=== PATIENT | female | born 1945 | race Caucasian/White ===

== ENCOUNTER 2016-10-30 08:33 | Day surgery (SDC) | payer MEDICARE, OTHER ==
--- NOTE | 2016-11-01 12:53 | Physician Courtesy Letter ---
October 30, 2016 Fransisca Crump DO [facility] [address], [address] [place], [place] [address] Dear Fransisca: I had an opportunity of seeing your patient in the Endoscopy Clinic at [facility] today. She was scheduled for surveillance colonoscopy for history of colon polyps and a family history of colon cancer. Unfortunately, she had a blood sugar of 403 when checked at this time. I explained to her that she needed to be treated and suggested she go to the Emergency Department to treat her hyperglycemia and evaluate for possible other pathology contributing to this elevated blood sugar level. She reports that she has not taken her insulin in 2 days, and at times she forgets to take it. She also apparently takes metformin, but at times might forget that as well. She refused to be treated, and wanted to go home. She was offered the option of having a lower GI x-ray today, but declined this as well. She states she will go home and take her insulin and follow up with you as scheduled. I would be happy to complete her colonoscopy when clinically more stable. Thank you for allowing me to participate in her care. IRVING
== END 2016-10-30 14:42 | disposition home or self-care (01) ==
LOC: HOP 08:33
PROVIDERS: ATTEND Internal Medicine Gastroenterology
DX: Z86.010 Personal history of colon polyps (principal); Z53.9 Procedure and treatment not carried out, unspecified reason

== ENCOUNTER 2018-07-17 04:31 | Emergency (ER) | payer MEDICARE, OTHER ==
[2018-07-17] MEDS ORDERED: HUMULIN R 100 UNIT/ML VIAL SC ONE (04:32)
[2018-07-17] MEDS ORDERED: 0.9 % SODIUM CHLORIDE 1000ML 1,000 ML IV SCH (04:45)
--- NOTE | 2018-07-17 04:51 | Emergency Department Record ---
History of Present Illness - General Chief complaint: Cold Exposure Stated complaint: COLD EXPOSURE Time Seen by Provider: 07/17/18 04:45 Source: Patient Mode of Arrival: EMS Limitations: No limitations - History of Present Illness Initial comments: 73 yo female presents to ED after being found by laying outdoors this morning by a passing salt truck. Patient reports that she slipped and fell, but was unable to lift her self up. Patient denies injury on examination, and denies focal weakness on examination. Patient denies the use of anticoagulation medications. Patient was exposed to the cold for approximately 2 hours. MD Complaint: Other Onset/Timin -: Hour(s) History of Same: No Consistency: Constant Improves with: Nothing Worsens with: Nothing Associated Symptoms: Denies other symptoms - Related Data Home Medications Medication Instructions Recorded Confirmed Last Taken Insulin Aspart [Novolog Flexpen] 1 unit SQ TID 07/17/18 07/17/18 07/16/18 Insulin Detemir [Levemir Flextouch] 65 unit SQ DAILY 07/17/18 07/17/18 07/16/18 Solifenacin Succinate [Vesicare] 10 mg PO DAILY 07/17/18 07/17/18 Unknown Allergies Allergy/AdvReac Type Severity Reaction Status Date / Time No Known Drug Allergies Allergy Verified 08/18/16 09:31 Travel Screening - Travel/Exposure Within Last 30 Days Have you traveled within the last 30 days?: No - Travel Symptoms Symptom Screening: None Review of Systems Constitutional: Denies: Chills, Fever, Malaise, Night sweats Eyes: Denies: Eye discharge, Eye pain ENT: Denies: Congestion, Ear pain, Epistaxis Respiratory: Denies: Cough, Dyspnea Cardiovascular: Denies: Arrhythmia, Chest pain, Dyspnea on exertion Endocrine: Denies: Fatigue, Heat or cold intolerance Gastrointestinal: Denies: Abdominal pain, Nausea, Vomiting Genitourinary: Denies: Incontinence, Retention Musculoskeletal: Denies: Arthralgia, Back pain Skin: Denies: Bruising, Change in color Neurological: Denies: Abnormal gait, Confusion, Headache, Seizure Psychiatric: Denies: Anxiety Hematological/Lymphatic: Denies: Anemia, Blood Clots Past Medical History - SOCIAL HISTORY Smoking Status: Current every day smoker Alcohol Use: None Drug Use: None - RESPIRATORY Hx Respiratory Disorders: No - CARDIOVASCULAR Hx Cardio Disorders: Yes Hx Hypertension: Yes Comment:: high cholesterol - NEURO Hx Neuro Disorders: No - GI Hx GI Disorders: Yes Hx of Polyps: Yes - Hx Genitourinary Disorders: Yes Hx Bladder Problem: Yes - ENDOCRINE Hx Endocrine Disorders: Yes Hx Diabetes: Yes Hx Thyroid Disease: Yes (hypothyroid) - MUSCULOSKELETAL Hx Musculoskeletal Disorders: Yes Hx Arthritis: Yes - PSYCH Hx Psych Problems: No - HEMATOLOGY/ONCOLOGY Hx Hematology/Oncology Disorders: No Family Medical History Any Significant Family History?: Yes Hx Cancer: Father Hx Diabetes: Brother/Sister Hx Heart Disease: Grandparents Hx HTN: Grandparents Physical Exam - General General Appearance: Alert, Oriented x3, Cooperative, Mild distress Limitations: No limitations - Head Head exam: Atraumatic, Normocephalic, Normal inspection Head exam detail: negative: Abrasion, Contusion, Qureshi's sign, General tenderness, Hematoma, Laceration - Eye Eye exam: Normal appearance. negative: Conjunctival injection, Periorbital swelling, Periorbital tenderness, Scleral icterus - ENT Ear exam: negative: Auricular hematoma, Auricular trauma Nasal Exam: negative: Active bleeding, Discharge, Dried blood, Foreign body Mouth exam: negative: Drooling, Laceration, Muffled voice, Tongue elevation - Neck Neck exam: Normal inspection. negative: Meningismus, Tenderness - Respiratory Respiratory exam: Normal lung sounds bilaterally. negative: Rales, Respiratory distress, Rhonchi, Stridor - Cardiovascular Cardiovascular Exam: Normal rhythm, Normal heart sounds, Tachycardia - GI/Abdominal GI/Abdominal exam: Soft. negative: Rebound, Rigid, Tenderness - Rectal Rectal exam: Deferred - exam: Deferred - Extremities Extremities exam: Normal inspection. negative: Calf tenderness, Pedal edema, Tenderness - Back Back exam: Denies: CVA tenderness (R), CVA tenderness (L) - Neurological Neurological exam: Alert, Normal gait, Oriented X3 - Psychiatric Psychiatric exam: Normal affect, Normal mood - Skin Skin exam: Normal color. negative: Abrasion Type of lesion: negative: abrasion Course Vital Signs 07/17/18 04:33 Temperature 95.6 F L Pulse Rate 122 H Respiratory 20 Rate Blood Pressure 174/83 Pulse Ox 97 - Reevaluation(s) Reevaluation #1: 07/17/18 05:16 Laboratory studies were reviewed: LA 5.2 CO2 15 AG 33 Venous pH 7.15 Hgb 17.9 Glucose 450 Acetone positive 1:16 Laboratory studies are otherwise grossly unremarkable for an acute process. Patient is currently in CT for imaging studies. 07/17/18 05:28 Reevaluation #2: 07/17/18 05:34 Patient is back from CT imaging Warmed IVFs are infusing Pulse improved to 110 Patient was updated on all results thus far Will plan on repeat labs to determine lactic acidosis vs. DKA and monitor closely. Reevaluation #3: 07/17/18 06:05 CT Brain: Mild diffuse volume loss, likely small vessel ischemic change. No acute process. 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 Repeat temperature 97.9 at this time. Reevaluation #4: 07/17/18 06:11 EKG: Sinus tachycardia 106 Normal axis, normal intervals Diffuse artifact present, no acute ST-T wave changes are present. Reevaluation #5: 07/17/18 07:29 Repeat labs were reviewed: Lactic acid improved 1.5 AG improved to 29 Glucose improved to 390 CO2 Decreased to 11 Case was discussed with Dr. St (Inpatient admitting provider), feels the patient will require higher level of care due to the complexity of her electrolyte abnormalities. [facility] 1-call contacted for transfer. Case was discussed with Dr. Wilkes, will accept transfer at this time. Medical Decision Making - Lab Data Result diagrams: 07/17/18 04:21 07/17/18 06:47 Critical Care Time Critical Care Time: Yes Total Critical Care Time: 90 Critical Care Time: Diagnosis and treatment for hypothermia, exclusion of traumatic injury, treatment and reassessment for lactic acidosis and hyperglycemia (possible DKA) , multiple reassessments, EKG interpretation, laboratory interpretation, and initiation of transfer. Disposition Disposition: Transfer Clinical Impression: Hyperglycemia, Lactic acidosis Hypothermia Qualifiers: Encounter type: initial encounter Qualified Code(s): T68.XXXA - Hypothermia, initial encounter Disposition: Still a Patient at [facility] Transfer To: [facility] Reason For Transfer: DESIR admission, DKA vs. Lactic acidosis Accepting Physician: Chung Time Discussed w/Accepting Physician: 07:32 Condition: (2) Stable Forms: Patient Portal Access Time of Disposition: 07:32 Quality - Quality Measures Quality Measures: N/A - Blood Pressure Screening Does Patient Have Any of the Following: No Blood Pressure Classification: Pre-Hypertensive BP Reading Systolic Measurement: 174 Diastolic Measurement: 83 Screening for High Blood Pressure: < Pre-Hypertensive BP, F/U Documented > [ [id number]] Pre-Hypertensive Follow-up Interventions: Referral to alternative/primary care provider.
[2018-07-17 04:55] LABS: BASO % 0.6 % (0-6); EOS % 1.2 % (0-6); GRAN % 66.2 % (47-80); HEMOGLOBIN 17.9 gm/dl (11.6-16.0); LYMPH % 24.4 % (16-45); MEAN CELL VOLUME 88.6 fl (81-97); MEAN CORPUSCULAR HGB CONC 34.4 g/dl (32-36); MONO % 7.6 % (0-9); PLATELET COUNT 285 K/uL (130-400); RED BLOOD COUNT 5.87 M/uL (3.80-5.40); RED CELL DISTRIBUTION WIDTH 14.3 % (11.5-14.5); WHITE BLOOD COUNT W/O DIFF 10.4 K/uL (4.2-12.2)
[2018-07-17 04:56] LABS: MEAN CORPUSCULAR HEMOGLOBIN 30.4 pg (27-33)
[2018-07-17 05:03] LABS: BLOOD UREA NITROGEN 19 mg/dL (8-23); CREATININE 0.9 mg/dL (0.5-0.9); EST GLOMERULAR FILTRATION RATE > 60 mL/min
[2018-07-17 05:04] LABS: TOTAL PROTEIN 8.1 g/dL (6.6-8.7)
[2018-07-17 05:09] LABS: ALB/GLOB RATIO 1.3 (1.1-1.8); ALBUMIN 4.5 g/dL (4.0-5.0); ALKALINE PHOSPHATASE 105 U/L (45-87); ALT/SGPT 10 U/L (<33); AST/SGOT 11 U/L (10.0-35.0)
[2018-07-17 05:18] LABS: GLUCOSE,RANDOM 459 mg/dL (74-109)
[2018-07-17] MEDS ORDERED: 0.9 % SODIUM CHLORIDE 1000ML 1,000 ML IV ONE (05:45)
[2018-07-17 07:16] LABS: BLOOD UREA NITROGEN 18 mg/dL (8-23); CREATININE 0.7 mg/dL (0.5-0.9); EST GLOMERULAR FILTRATION RATE > 60 mL/min; GLUCOSE,RANDOM 390 mg/dL (74-109)
[2018-07-17 07:17] LABS: LACTIC ACID 1.5 mmol/L (0.5-2.2)
[2018-07-17] MEDS ORDERED: HUMULIN R 100 UNIT/ML VIAL IV ONE (10:27)
--- NOTE | 2018-07-18 12:33 | CT SCAN REPORT ---
EXAM: CT OF THE BRAIN WITHOUT CONTRAST HISTORY: FALL. TECHNIQUE: Sequential axial images were obtained from the foramen magnum to the vertex without contrast administration. FINDINGS: The brain volume is normal. There is periventricular small vessel ischemia. No large territorial infarct, hemorrhage, mass effect, or midline shift. No extraaxial fluid collection. The orbits, paranasal sinuses, and mastoid air cells are normal. IMPRESSION: PERIVENTRICULAR SMALL VESSEL ISCHEMIA. NO ACUTE INTRACRANIAL ABNORMALITY. JOB NUMBER: [id number] [facility]
--- NOTE | 2018-07-18 12:41 | CT SCAN REPORT ---
EXAM: CT OF THE CERVICAL SPINE WITHOUT CONTRAST HISTORY: INJURY. TECHNIQUE: Sequential axial images were obtained through the cervical spine without intravenous contrast administration. Sagittal and coronal reformatted images were performed. FINDINGS: No evidence of fracture, subluxation or perched facet. Multilevel degenerative change. Findings most pronounced at C4-C5 through C6-C7 levels. IMPRESSION: NO EVIDENCE OF FRACTURE, SUBLUXATION, OR PERCHED FACET. MULTILEVEL DEGENERATIVE CHANGE. FINDINGS ARE MOST PRONOUNCED AT C4-C5 THROUGH C6-C7 LEVELS. JOB NUMBER: [id number] [facility]
== END 2018-07-17 12:55 | disposition still patient (30) ==
LOC: ER 04:31
DX: T68.XXXA Hypothermia, initial encounter (principal); X31.XXXA Exposure to excessive natural cold, initial encounter; E87.2 Acidosis; R51 Headache; M54.2 Cervicalgia; E11.65 Type 2 diabetes mellitus with hyperglycemia; Z79.4 Long term (current) use of insulin; Z79.84 Long term (current) use of oral hypoglycemic drugs; I10 Essential (primary) hypertension; F17.210 Nicotine dependence, cigarettes, uncomplicated; W01.198A Fall on same level from slipping, tripping and stumbling with subsequent striking against other object, initial encounter; Y92.007 Garden or yard of unspecified non-institutional (private) residence as the place of occurrence of the external cause
CPT/HCPCS: 99291 ×2; 96374; 96361; 99292; 82550; 83605; 82800; 85025; 80048; 80053; 36416; 82009; 82948; 72125; 70450; 93005; 93010; J1815; J7030

== ENCOUNTER 2018-07-31 11:44 | Emergency (ER) | payer MEDICARE, OTHER ==
--- NOTE | 2018-07-31 11:38 | Emergency Department Record ---
History of Present Illness - General Chief Complaint: Altered Mental Status Source: Patient, RN notes reviewed - History of Present Illness Initial Comments: patient found unresponsive by brother and 911 called and 1 minute of Cpr and pulses felt and glucose done with a result or 20 and given one amp of D50 and she wake up and the repeat glucose 150. She said not much dinner last night and at 3 am she ate a banana and took her novolog insulin of 62 units. Brother is going to get her insulin directions and meds she was just in the hospital about one week ago and fell and had hypothermia and treated at [facility]. - Related Data Home Medications Medication Instructions Recorded Confirmed Last Taken Levothyroxine Sodium [Unithroid] 50 mcg PO DAILY 07/31/18 07/31/18 Unknown Linagliptin [Tradjenta] 5 mg PO DAILY 07/31/18 07/31/18 Unknown Naproxen 500 mg PO BID 07/31/18 07/31/18 Unknown Oxybutynin Chloride [Oxybutynin 15 mg PO DAILY 07/31/18 07/31/18 Unknown Chloride ER] Allergies Allergy/AdvReac Type Severity Reaction Status Date / Time No Known Drug Allergies Allergy Verified 08/18/16 09:31 Review of Systems Reviewed: No additional complaints except as noted below Constitutional: Reports: As per HPI. Denies: Chills, Fever, Malaise, Night sweats, Weakness, Weight change Eyes: Reports: As per HPI. Denies: Eye discharge, Eye pain, Photophobia, Vision change ENT: Reports: As per HPI. Denies: Congestion, Dental pain, Ear pain, Epistaxis , Hearing loss, Throat pain Respiratory: Reports: As per HPI. Denies: Cough, Dyspnea, Hemoptysis, Stridor, Wheezes Cardiovascular: Reports: As per HPI. Denies: Arrhythmia, Chest pain, Dyspnea on exertion, Edema, Murmurs, Orthopnea, Palpitations, Paroxysmal nocturnal dyspnea, Rheumatic Fever, Syncope Endocrine: Reports: As per HPI. Denies: Fatigue, Heat or cold intolerance, Polydipsia, Polyuria Gastrointestinal: Reports: As per HPI. Denies: Abdominal pain, Constipation, Diarrhea, Hematemesis, Hematochezia, Melena, Nausea, Vomiting Genitourinary: Reports: As per HPI. Denies: Abnormal menses, Discharge, Dyspareunia, Dysuria, Frequency, Hematuria, Incontinence, Retention, Urgency Musculoskeletal: Reports: As per HPI. Denies: Arthralgia, Back pain, Gout, Joint swelling, Myalgia, Neck pain Skin: Reports: As per HPI. Denies: Bruising, Change in color, Change in hair/ nails, Lesions, Pruritus, Rash Neurological: Reports: As per HPI. Denies: Abnormal gait, Confusion, Headache, Numbness, Paresthesias, Seizure, Tingling, Tremors, Vertigo, Weakness Psychiatric: Reports: As per HPI. Denies: Anxiety, Auditory hallucinations, Depression, Homicidal thoughts, Suicidal thoughts, Visual hallucinations Hematological/Lymphatic: Reports: As per HPI. Denies: Anemia, Blood Clots, Easy bleeding, Easy bruising, Swollen glands Past Medical History - SOCIAL HISTORY Smoking Status: Current every day smoker Drug Use: None - RESPIRATORY Hx Respiratory Disorders: No - CARDIOVASCULAR Hx Cardio Disorders: Yes Hx Hypertension: Yes Comment:: high cholesterol - NEURO Hx Neuro Disorders: No - GI Hx GI Disorders: Yes Hx of Polyps: Yes - Hx Genitourinary Disorders: Yes Hx Bladder Problem: Yes - ENDOCRINE Hx Endocrine Disorders: Yes Hx Diabetes: Yes Hx Thyroid Disease: Yes (hypothyroid) - MUSCULOSKELETAL Hx Musculoskeletal Disorders: Yes Hx Arthritis: Yes - PSYCH Hx Psych Problems: No - HEMATOLOGY/ONCOLOGY Hx Hematology/Oncology Disorders: No Family Medical History Hx Cancer: Father Hx Diabetes: Brother/Sister Hx Heart Disease: Grandparents Hx HTN: Grandparents Physical Exam - General General Appearance: Alert, Oriented x3, Cooperative, No acute distress, Other ( some confusion at first but clearing while I examined her.) - Head Head exam: Normal inspection - Eye Eye exam: Normal appearance, PERRL Pupils: Normal accommodation - ENT ENT exam: Normal exam, Mucous membranes moist, Normal external ear exam, Normal orophraynx, TM's normal bilaterally Ear exam: Normal external inspection. negative: External canal tenderness Nasal Exam: Normal inspection. negative: Discharge, Sinus tenderness Mouth exam: Normal external inspection, Tongue normal Teeth exam: Normal inspection. negative: Dental caries Throat exam: Normal inspection. negative: Tonsillar erythema, Tonsillar exudate - Neck Neck exam: Normal inspection, Full ROM. negative: Tenderness - Respiratory Respiratory exam: Normal lung sounds bilaterally. negative: Respiratory distress - Cardiovascular Cardiovascular Exam: Regular rate, Normal rhythm, Normal heart sounds - GI/Abdominal GI/Abdominal exam: Soft, Normal bowel sounds. negative: Tenderness - Rectal Rectal exam: Deferred - exam: Deferred - Extremities Extremities exam: Normal inspection, Full ROM, Normal capillary refill. negative: Tenderness - Back Back exam: Reports: Normal inspection, Full ROM. Denies: Muscle spasm, Rash noted, Tenderness - Neurological Neurological exam: Alert, Normal gait, Oriented X3, Reflexes normal - Psychiatric Psychiatric exam: Normal affect, Normal mood - Skin Skin exam: Dry, Intact, Normal color, Warm Course - Reevaluation(s) Reevaluation #1: lunch tray given to the patient. 07/31/18 11:38 Reevaluation #2: patient is doing well and wants to go home and brother is going to check her sugars and set up a chart for checking her glucose. 07/31/18 16:21 Medical Decision Making - Lab Data Result diagrams: 07/31/18 11:30 07/31/18 11:30 Disposition Clinical Impression: Hypoglycemia Diabetes Qualifiers: Diabetes mellitus type: type 2 Diabetes mellitus [facility] insulin use: with manager terminal use Diabetes mellitus complication status: with unspecified complications Qualified Code(s): E11.8 - Type 2 diabetes mellitus with unspecified complications Disposition: Home, Self-Care Condition: (1) Good Instructions: Hypoglycemia in a Person with Diabetes (ED) Additional Instructions: check glucose four times a day before meals and bedtime decrease levemir to 55 units every am decrease novolog to 20 units before breakfast and dinner follow up with family Dr in one week reviewed give candy or sugar if glucose less than 70 Forms: Patient Portal Access Time of Disposition: 16:24 Quality - Quality Measures Quality Measures: N/A - Blood Pressure Screening Does Patient Have Any of the Following: No Blood Pressure Classification: Normal BP Reading Systolic Measurement: 107 Diastolic Measurement: 69 Screening for High Blood Pressure: < Normal BP, F/U Not Required > [G8783]
[2018-07-31 11:39] LABS: BASO % 0.2 % (0-6); EOS % 0.1 % (0-6); HEMATOCRIT 48.3 % (35.0-47.0); HEMOGLOBIN 16.4 gm/dl (11.6-16.0); LYMPH % 4.3 % (16-45); MEAN CELL VOLUME 90.8 fl (81-97); MEAN CORPUSCULAR HEMOGLOBIN 30.8 pg (27-33); MEAN PLATELET VOLUME 9.7 fl (7.4-10.4); MONO % 5.2 % (0-9); PLATELET COUNT 254 K/uL (130-400); RED BLOOD COUNT 5.32 M/uL (3.80-5.40); RED CELL DISTRIBUTION WIDTH 14.6 % (11.5-14.5); WHITE BLOOD COUNT W/O DIFF 11.2 K/uL (4.2-12.2)
[2018-07-31 11:49] LABS: BLOOD UREA NITROGEN 23 mg/dL (8-23); CREATININE 0.4 mg/dL (0.5-0.9); EST GLOMERULAR FILTRATION RATE > 60 mL/min
[2018-07-31 11:52] LABS: GLUCOSE,RANDOM 82 mg/dL (74-109)
== END 2018-07-31 16:46 | disposition home or self-care (01) ==
LOC: ER 11:44
DX: E11.649 Type 2 diabetes mellitus with hypoglycemia without coma (principal); R41.82 Altered mental status, unspecified; Z79.84 Long term (current) use of oral hypoglycemic drugs; F17.210 Nicotine dependence, cigarettes, uncomplicated; Z79.4 Long term (current) use of insulin
CPT/HCPCS: 36416; 80048; 82948; 84484; 85027; 99284

== ENCOUNTER 2019-07-28 08:20 | Day surgery (SDC) | payer MEDICARE, OTHER, MEDICAID ==
[2019-07-28] MEDS ORDERED: PROPOFOL 10 MG/ML VIAL IV ONE (08:21)
[2019-07-28] MEDS ORDERED: LIDOCAINE 2% MDV (20MG/ML) 20ML VIAL IV ONE (08:21)
--- NOTE | 2019-07-29 09:11 | Operative Note ---
OPERATION: COLONOSCOPY to the cecum with cold snare polypectomy x2. INDICATION: Prior history of adenomatous polyp. The patient was with family history of colon cancer in her father. She returns at this time after approximately 7 years for surveillance. ANESTHESIA: Intravenous sedation was administered by the department of anesthesiology and included Diprivan titrated to effect. PROCEDURE: Following informed consent from this alert individual including a discussion of the risks and benefits of the procedure and an opportunity for the patient to ask questions, the patient was in the left lateral decubitus position. A digital rectal examination was performed. No abnormalities were noted. Following this, the Olympus [id number] video colonoscope was inserted into the rectum without resistance. The rectal mucosa had a normal appearance with normal folds and distensibility. The colonoscope was advanced up through the colon to the level of the cecum without much difficulty. Throughout the bowel the mucosa appeared normal, the folds were normal, and the bowel was fairly well distensible. The cecum was defined by noting the appendiceal orifice and ileocecal valve. Overall, the colon preparation was adequate. From the base of the cecum, the colonoscope was then slowly withdrawn. In the cecum itself, there were 3 small angiodysplasia areas, none of which were bleeding. In the transverse colon at the region of the splenic flexure, there was a sessile polyp along a fold. It measured 7 mm in size and was removed with cold snare polypectomy. There as a small 4 mm polyp in the descending colon noted also removed with cold snare polypectomy. The instrument was further withdrawn. No additional changes were appreciated. Retroflexion in the rectum was endoscopically unremarkable. The instrument was straightened and removed. The patient tolerated the procedure well and was returned to the recovery area in stable condition. IMPRESSION: 1. 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 2. A 7 mm transverse colon polyp at the splenic flexure region removed with cold snare polypectomy. 3. A 4 mm descending colon polyp removed with cold snare polypectomy. RECOMMENDATIONS: Because of the larger polyp in the area of the splenic flexure, I did suggest she have a surveillance examination in approximately 3 years' time and also in light of her family history of colon cancer and a prior history of adenomatous polyps. Further recommendations may also be forthcoming pending results of pathology obtained today. As always, thank you for allowing me to participate in the care of your patient. IRVING
== END 2019-07-28 10:39 | disposition home or self-care (01) ==
LOC: HOP 08:20
PROVIDERS: ATTEND Internal Medicine Gastroenterology
DX: Z12.11 Encounter for screening for malignant neoplasm of colon (principal); Z86.010 Personal history of colon polyps; D12.4 Benign neoplasm of descending colon; D12.3 Benign neoplasm of transverse colon; Q27.33 Arteriovenous malformation of digestive system vessel; Z80.0 Family history of malignant neoplasm of digestive organs; E11.9 Type 2 diabetes mellitus without complications; Z79.84 Long term (current) use of oral hypoglycemic drugs; Z79.01 Long term (current) use of anticoagulants; E03.9 Hypothyroidism, unspecified; E78.00 Pure hypercholesterolemia, unspecified; Z79.4 Long term (current) use of insulin